=== PATIENT | male | born 1975 ===

== ENCOUNTER 2018-03-22 12:10 | Emergency (ER) | payer OTHER ==
[2018-03-22] MEDS ORDERED: Iohexol 240 (50 ml) PO ONE (15:35)
[2018-03-22] MEDS ORDERED: Sodium Chloride 0.9% 1,000 ML IV STA (15:36)
[2018-03-22] MEDS ORDERED: Morphine 4 MG/ML VIAL ONE (15:54)
[2018-03-22] MEDS ORDERED: Iohexol 240 (50 ml) ONE (15:55)
--- NOTE | 2018-03-22 15:55 | ED PDOC ---
HPI: General Adult Time Seen by Provider: 03/22/18 14:54 Chief Complaint (Nursing): Abdominal Pain Chief Complaint (Provider): Hernia Pain History Per: Patient History/Exam Limitations: no limitations Onset/Duration Of Symptoms: Days (x5 months) Current Symptoms Are (Timing): Still Present Additional Complaint(s): 42 year old male with no PMHx presents to the ED with hernia pain onset 5 months. Patient reports pain is worse on the right side and has worsened in pain over the last 2 weeks. He reports subjective fever, but denies any vomiting or difficulty passing stool. PMD: none provided Past Medical History Reviewed: Historical Data, Nursing Documentation, Vital Signs Vital Signs: Last Vital Signs Temp 98.8 F 03/22/18 12:37 Pulse 95 H 03/22/18 12:37 Resp 16 03/22/18 12:37 BP 144/87 03/22/18 12:37 Pulse Ox 98 03/22/18 12:37 - Medical History PMH: No Chronic Diseases Denies: Chronic Kidney Disease - Surgical History Surgical History: No Surg Hx - Family History Family History: States: Unknown Family Hx - Social History Current smoker - smoking cessation education provided: No Alcohol: None Drugs: Denies - Immunization History Hx Tetanus Toxoid Vaccination: No Hx Influenza Vaccination: No Hx Pneumococcal Vaccination: No - Home Medications Home Medications: Ambulatory Orders Medication Instructions Recorded RX: No Known Home Med 01/08/18 - Allergies Allergies/Adverse Reactions: Allergies Allergy/AdvReac Type Severity Reaction Status Date / Time No Known Allergies Allergy Verified 03/22/18 12:37 Review of Systems ROS Statement: Except As Marked, All Systems Reviewed And Found Negative Constitutional: Positive for: Fever (subjective) Gastrointestinal: Negative for: Vomiting Genitourinary Male: Positive for: Other (hernia pain ) Physical Exam - Reviewed Nursing Documentation Reviewed: Yes Vital Signs Reviewed: Yes - Physical Exam Appears: Positive for: No Acute Distress Head Exam: Positive for: ATRAUMATIC, NORMOCEPHALIC Skin: Positive for: Normal Color, Warm, Dry Eye Exam: Positive for: EOMI, Normal appearance, PERRL ENT: Positive for: Normal ENT Inspection Neck: Positive for: Normal Cardiovascular/Chest: Positive for: Regular Rate, Rhythm. Negative for: Murmur Respiratory: Positive for: Normal Breath Sounds. Negative for: Respiratory Distress Gastrointestinal/Abdominal: Positive for: Normal Exam Male Genital Exam: Positive for: other (bulge on right lower abdomen/groin area, tenderness to palpation, reducible manually) Extremity: Positive for: Normal ROM (upper and lower). Negative for: Pedal Edema, Deformity Neurologic/Psych: Positive for: Alert, Oriented - Laboratory Results Result Diagrams: 03/22/18 16:08 03/22/18 16:08 - ECG O2 Sat by Pulse Oximetry: 98 (RA) Pulse Ox Interpretation: Normal Medical Decision Making Medical Decision Making: Time: 153 ABDOMINAL PAIN, HERNIA RULE OUT STRANGULATION No records or prior imaging Plan: --CT Abdomen and Pelvis --CMP --CBC --Morphine 4 mg iV --NS --Omnipaque 50 ml PO --Reevaluation Time: 1852 CT abd/pelvis FINDINGS: LOWER THORAX: No visible consolidation, pleural effusion, or pneumothorax. LIVER: Unremarkable. GALLBLADDER AND BILE DUCTS: Unremarkable. PANCREAS: Unremarkable. SPLEEN: Unremarkable. ADRENALS: Unremarkable. KIDNEYS AND URETERS: The kidneys enhance symmetrically. Left-sided hydronephrosis and hydroureter. No obstructing calculus identified. BLADDER: Distended urinary bladder. REPRODUCTIVE: Borderline enlarged heterogeneous prostate gland. APPENDIX: The appendix appears within normal limits of caliber. No secondary signs of acute appendicitis. BOWEL: The stomach is nondistended. The bowel loops appear within normal limits of caliber without evidence of intestinal obstruction. PERITONEUM: No significant free fluid. No definite free air. LYMPH NODES: No bulky lymphadenopathy identified. VASCULATURE: No aortic aneurysm. No atherosclerotic calcification or mural plaque present. BONES: No acute osseous abnormality is detected. OTHER FINDINGS: Fat containing right inguinal hernia. IMPRESSION: Left-sided hydronephrosis and hydroureter. Obstructing calculus not identified. Recommend clinical correlation including urinalysis. Distended urinary bladder. Borderline enlarged heterogeneous prostate gland. Recommend correlation with PSA. Fat containing right inguinal hernia. Time: 1899 --Ordered UA and urine culture to rule out UTI. Time: 1899 --Patient signed out to dr maurer, pending UA and urine culture. --- Scribe Attestation: Documented by Vidya Barragan, acting as a scribe for Natanael Good MD. Provider Scribe Attestation: All medical record entries made by the Scribe were at my direction and personally dictated by me. I have reviewed the chart and agree that the record accurately reflects my personal performance of the history, physical exam, medical decision making, and the department course for this patient. I have also personally directed, reviewed, and agree with the discharge instructions and di sposition. Disposition - Clinical Impression Clinical Impression: Abdominal hernia, Hydronephrosis - Patient ED Disposition Is Patient to be Admitted: Transfer of Care - Disposition Referrals: [facility] [Outside] Martha Montemayor MD [Staff Provider] - Darci Ac MD [Medical Doctor] - Disposition: Transfer of Care Disposition Time: 19:00 Condition: STABLE Instructions: Abdominal Hernia (DC) Forms: [employer] (Syriac) Print Language: AMERICAN Patient Signed Over To: Qamar Maurer
[2018-03-22] MEDS ORDERED: Morphine 4 MG/ML VIAL IV ONE (16:30)
[2018-03-22 16:32] LABS: BASO % 0.6 % (0.0-2.0); EOS % 0.7 % (0.0-4.0); LYMPH # 1.3 K/uL (1.0-4.3); LYMPH % 23.4 % (20.0-40.0); MEAN CELL VOLUME 91.2 fl (80.0-94.0); MEAN CORPUSCULAR HEMOGLOBIN 31.1 pg (27.0-31.0); MEAN CORPUSCULAR HGB CONC 34.1 g/dL (33.0-37.0); MEAN PLATELET VOLUME 8.9 fl (7.2-11.7); MONO # 0.4 K/uL (0.0-0.8); MONO % 7.2 % (0.0-10.0); NEUT # 3.8 K/uL (1.8-7.0); NEUT % 68.1 % (50.0-75.0); NRBC % 0.2 % (0.0-0.0); RBC 5.15 Mil/uL (4.40-5.90); RED CELL DISTRIBUTION WIDTH 13.4 % (11.5-14.5); WHITE BLOOD COUNT 5.6 K/uL (4.8-10.8)
[2018-03-22 16:43] LABS: ALB/GLOB RATIO 1.5 (1.0-2.1); ALBUMIN 4.8 g/dL (3.5-5.0); ALT/SGPT 50 U/L (21-72); AST/SGOT 41 U/L (17-59); BLOOD UREA NITROGEN 13 mg/dl (9-20); CALCIUM 9.9 mg/dL (8.4-10.2); GFR NON-AFRICAN AMERICAN > 60
[2018-03-22] MEDS ORDERED: Sodium Chloride 0.9% 50 ML IV ONE (18:05)
[2018-03-22] MEDS ORDERED: Iohexol 300 100 ML IJ ONE (18:05)
--- NOTE | 2018-03-22 18:57 | CT ---
PROCEDURE: CT Abdomen and Pelvis with oral and IV contrast. HISTORY: abd pain hernia COMPARISON: None available. TECHNIQUE: Contiguous axial images of the abdomen and pelvis. Oral and IV contrast was administered. Coronal and Sagittal reformats generated and reviewed. Contrast dose: 95 mL Omnipaque 300 IV Radiation dose: Total exam DLP = 459.77 mGy-cm. This CT exam was performed using one or more of the following dose reduction techniques: Automated exposure control, adjustment of the mA and/or kV according to patient size, and/or use of iterative reconstruction technique. FINDINGS: LOWER THORAX: No visible consolidation, pleural effusion, or pneumothorax. LIVER: Unremarkable. GALLBLADDER AND BILE DUCTS: Unremarkable. PANCREAS: Unremarkable. SPLEEN: Unremarkable. ADRENALS: Unremarkable. KIDNEYS AND URETERS: The kidneys enhance symmetrically. Left-sided hydronephrosis and hydroureter. No obstructing calculus identified. BLADDER: Distended urinary bladder. REPRODUCTIVE: Borderline enlarged heterogeneous prostate gland. APPENDIX: The appendix appears within normal limits of caliber. No secondary signs of acute appendicitis. BOWEL: The stomach is nondistended. The bowel loops appear within normal limits of caliber without evidence of intestinal obstruction. PERITONEUM: No significant free fluid. No definite free air. LYMPH NODES: No bulky lymphadenopathy identified. VASCULATURE: No aortic aneurysm. No atherosclerotic calcification or mural plaque present. BONES: No acute osseous abnormality is detected. OTHER FINDINGS: Fat containing right inguinal hernia. IMPRESSION: Left-sided hydronephrosis and hydroureter. Obstructing calculus not identified. Recommend clinical correlation including urinalysis. Distended urinary bladder. Borderline enlarged heterogeneous prostate gland. Recommend correlation with PSA. Fat containing right inguinal hernia.
--- NOTE | 2018-03-22 19:27 | ED PDOC ---
- Laboratory Results Result Diagrams: 03/22/18 16:08 03/22/18 16:08 Lab Results: Total Bilirubin 0.7 mg/dl (0.2-1.3) 03/22/18 16:08 AST 41 U/L (17-59) 03/22/18 16:08 ALT 50 U/L (21-72) 03/22/18 16:08 Alkaline Phosphatase 103 U/L (38-126) 03/22/18 16:08 Total Protein 8.0 G/DL (6.3-8.2) 03/22/18 16:08 Albumin 4.8 g/dL (3.5-5.0) 03/22/18 16:08 Globulin 3.2 gm/dL (2.2-3.9) 03/22/18 16:08 Albumin/Globulin Ratio 1.5 (1.0-2.1) 03/22/18 16:08 - ECG O2 Sat by Pulse Oximetry: 98 (RA) Pulse Ox Interpretation: Normal Medical Decision Making Medical Decision Making: Time: 1899 Patient endorsed to this provider by Dr. Good, pending Urine and reevaluation. Time: 2204 --Urine review shows no indication of urinary infection. Etiology of hydronephrosis on CT is unclear. Patient has no urinary symptoms and denies having any flank pain. --Patient is instructed to follow up with urology and surgical services. --Diagnosis is hernia of the abdominal wall. --Patient's condition is stable and will be discharged. ------ Scribe Attestation: Documented by Miguelangel Garrison, acting as a scribe for Qamar Maurer MD. Provider Scribe Attestation: All medical record entries made by the Scribe were at my direction and personally dictated by me. I have reviewed the chart and agree that the record accurately reflects my personal performance of the history, physical exam, medical decision making, and the department course for this patient. I have also personally directed, reviewed, and agree with the discharge instructions and disposition. Disposition - Clinical Impression Clinical Impression: Abdominal hernia, Hydronephrosis - POA Present On Arrival: None - Disposition Referrals: [facility] [Outside] Martha Montemayor MD [Staff Provider] - Darci Ac MD [Medical Doctor] - Disposition: Routine/Home Disposition Time: 22:08 Condition: STABLE Instructions: Abdominal Hernia (DC) Forms: [employer] (Marshallese) Print Language: SAMMARINESE
[2018-03-22 20:47] LABS: URINE BILIRUBIN NEGATIVE (NEGATIVE); URINE BLOOD NEGATIVE (NEGATIVE); URINE CLARITY CLEAR (Clear); URINE COLOR STRAW (YELLOW); URINE GLUCOSE (UA) NEG (NEGATIVE); URINE LEUKOCYTE ESTERASE NEG Leu/uL (Negative); URINE PROTEIN NEGATIVE (NEGATIVE); URINE UROBILINOGEN 0.2-1.0 mg/dL (0.2-1.0)
[2018-03-22 22:28] VITALS: BP 128/77; PULSE 84; RESP 17; TEMP 98.3
[2018-03-23 06:29] VITALS: O2SAT 98
== END 2018-03-22 22:22 | disposition home or self-care (01) ==
LOC: H.ER 12:10
DX: N13.30 Unspecified hydronephrosis (principal); K40.90 Unilateral inguinal hernia, without obstruction or gangrene, not specified as recurrent
CPT/HCPCS: 74177; 80053; 81003; 85025; 87086; 99285; J2270; J7030; Q9966; Q9967